=== PATIENT | female | born 2000 | race Caucasian/White ===

== ENCOUNTER 2018-01-10 22:42 | Observation (INO) | payer BC, OTHER ==
[2018-01-11 00:04] LABS: #Basophils 0.1 thou/uL (0.0-0.2); #Eosinphils 0.1 thou/uL (0.0-0.7); #Monocytes 0.6 thou/uL (0.11-0.59); #Neutrophils 5.8 thou/uL (1.40-6.50); %Lymphocytes 23.5 % (28.0-48.0); %Monocytes 7.3 % (0.0-4.0); %Neutrophils 67.3 % (31.0-61.0); Hemoglobin 10.1 g/dL (12.0-16.0); Mean Corpuscular HGB CONC 32.9 g/dL (32.0-36.0); Mean Corpuscular Hemoglobin 26.1 pg (25.0-35.0); Mean Corpuscular Volume 79.4 fL (78.0-98.0); Mean Platelet Volume 6.7 fL (7.4-10.4); Platelet Count 298 thou/uL (130-400); RBC Distribution Width 15.6 % (11.5-14.5); Red Blood Cell (RBC) Count 3.85 mill/uL (4.00-5.20); White Blood Cell (WBC) Count 8.6 thou/uL (4.8-10.8)
[2018-01-11 01:48] LABS: Bilirubin Negative (Negative); Blood, Urine Negative (Negative); Clarity CLEAR (Clear); Glucose, Urine (Dipstick) Negative (Negative); Leukocyte Negative (Negative); Nitrite Negative (Negative); Protein, Urine (Dipstick) Negative (Neg-Trace); Specific Gravity, Urine 1.018 (1.002-1.036); Urobilinogen 0.2 mg/dL (0.2-1.0)
[2018-01-11 04:24] LABS: Hemoglobin 9.7 g/dL (12.0-16.0)
[2018-01-11] MEDS ORDERED: Ondansetron HCl/PF 4 MG/2 ML Vial IVP PRN (04:39)
[2018-01-11] MEDS ORDERED: Acetaminophen 500 MG TAB PO PRN (04:39)
[2018-01-11 08:16] LABS: Hemoglobin 9.2 g/dL (12.0-16.0); Mean Corpuscular HGB CONC 33.1 g/dL (32.0-36.0); Mean Corpuscular Hemoglobin 25.8 pg (25.0-35.0); Mean Corpuscular Volume 77.8 fL (78.0-98.0); Mean Platelet Volume 6.1 fL (7.4-10.4); Platelet Count 234 thou/uL (130-400); RBC Distribution Width 15.5 % (11.5-14.5); Red Blood Cell (RBC) Count 3.57 mill/uL (4.00-5.20); White Blood Cell (WBC) Count 7.7 thou/uL (4.8-10.8)
--- NOTE | 2018-01-11 08:57 | ULT ---
PRELIMINARY REPORT/[facility]/EMERGENTY AFTER-HOURS PROCEDURE Addendum created by Delano Parra MD on 01/11/2018 5:51 AM Central Time ([place] & [place]) THIS REPORT CONTAINS FINDINGS THAT MAY BE CRITICAL TO PATIENT CARE. Dr Alexis confirmed receipt of the report/critical findings at 5:43 AM CDT on 01/11/2018. Initial Report created on 01/11/2018 5:42 AM Central Time ([place] & [place]) US First Trimester, Transabdominal US , Transvaginal US Duplex Arterial/Venous of the Pelvis, Limited CLINICAL HISTORY: 17 years old, female; Pain; complicated by abdominal or pelvic pain; Lower; First trimester ; Gestational age or lmp: 6w3d; ; Patient HX: Pelvic pressure/pain TECHNIQUE: Real-time transabdominal and transvaginal obstetrical ultrasound of the maternal pelvis and a first t rimester with image documentation. Transvaginal imaging was used for better evaluation of t he fetus and adnexa. Real-time duplex ultrasound scan of the pelvis integrating B-mode two-dimensional vascular structure, Doppler spectral analysis and color flow Doppler imaging. COMPARISON: No relevant prior studies available. FINDINGS: Transabdominal ultrasound showed an intrauterine gestational sac. Transvaginal ultrasound was perform ed for evaluation of yolk sac and pole. Duplex ultrasound scan with color Doppler flow and spec tral waveform analysis was also performed for evaluation of pelvic and ovarian blood flow and torsion. Gestation: Single, living intrauterine gestation. heart rate 124 beats per minute. CRL 0.52 cm, 6w2d. Yolk sac visualized. Subchorionic hemorrhage measuring up to 4.3 cm. Placenta/amniotic fluid: Cannot be adequately evaluated due to the early gestational age. Uterus/cervix: See above. Right ovary: Right ovary is not visualized. Left ovary: Left ovary is not well visualized. However no acute findings as visualized. Probable rachael us luteum. Normal ovarian blood flow. No evidence of torsion. Free fluid: Moderate adnexal and cul-de-sac free fluid. IMPRESSION: Single viable intrauterine . Large subchorionic hemorrhage. Moderate pelvic fluid. Findings described above. Thank you for allowing us to participate in the care of your patient. Dictated and Authenticated by: Delano Parra MD 01/11/2018 5:42 AM Central Time ([place] & [place]) FINAL REPORT OBSTETRIC SONOGRAM TRANSABDOMINAL AND TRANSVAGINAL IMAGING WITH DUPLEX EVALUATION PERFORMED ON AN EMERGENCY BASIS: Date: 01/11/18 Time: 0242 hours HISTORY: Early . Pelvic pain. FINDINGS: Findings agree with the preliminary report by Juanis. Early gestational sac within the endometrial cavi ty is confirmed. Large heterogeneous subchorionic fluid collection has the appearance of a subchorion ic hemorrhage. Measurements correlate with 6 weeks/2 days gestational size. Close continued clinical and sonographic follow-up is required. POS: ALESSIA
[2018-01-11 09:35] VITALS: BMI 29.4
[2018-01-11 10:20] VITALS: BP 104/54; TEMP 97.8
--- NOTE | 2018-01-11 10:36 | PDOC.EVN ---
Event Note - Event Note Event Note: Clinical scenario reviewed with Dr. Roberts this AM. Resting comfortably. VSS AF Abdomen is soft, NT. No guarding or rebound. Serial H/H's remain stable. Plan: DC home with precautions. Has appt. with primary care at [facility] in AM to obtain referral. Voices understanding.
--- NOTE | 2018-01-11 13:16 | HP ---
DATE OF SERVICE: 01/11/2018 ADMITTING DIAGNOSIS: Abdominal pain with an intrauterine at 6 weeks. CHIEF COMPLAINT: Abdominal pain PRIMARY OB: None. HISTORY OF PRESENT ILLNESS: The patient is a 17-year-old G1, now P0 female with an intrauterine at 6 weeks and 3 days by ultrasound done in the ER today, who presented with acute onset abdominal pain around 6:00 p.m. that did not show improvement so came for evaluation. In the emergency room evaluation demonstrated some free fluid in the abdomen with an intrauterine at 6 weeks and 3 days with seen pole and heartbeat. The patient reports that her pain is improved with sitting still and is a little bit improved since the onset, but is still pretty severe. Patient has not received any IV fluids at this time. The patient denies headache, chest pain, shortness of breath, nausea, vomiting, diarrhea, constipation, any new rashes. She denies hip problems, knee problems. She does report lower back pain that she attributes to the bed. She describes her pain is primarily on the right side, mid lower pelvis as well. Patient denies vaginal bleeding or leakage of fluid, urinary urgency or frequency. PAST MEDICAL HISTORY: Negative. PAST SURGICAL HISTORY: Negative. ALLERGIES: Negative. SOCIAL HISTORY: Denies drug, alcohol, or tobacco use. CURRENT MEDICATIONS: vitamins. PHYSICAL EXAMINATION: VITAL SIGNS: Blood pressure 145/63, pulse of 83, respiratory rate of 20, satting 100% on room air at the time of my evaluation. GENERAL: She appears to be in no acute distress. She is alert and oriented, cooperative and pleasant to interact with it. She appears to have good color. HEAD: Normocephalic, atraumatic. LUNGS: Clear to auscultation bilaterally. HEART: Regular rate and rhythm. ABDOMEN: Soft. She does have some tenderness to palpation on the right side, but no guarding. She has some suprapubic tenderness very little tenderness on the left side and no mid abdomen or epigastric tenderness to palpation. GENITOURINARY: Has been deferred. Ultrasound report is pending. Visibly there does appear to be a intrauterine with a pole and there is fluid present in the right adnexa and fundal region. LABORATORY DATA: Hemoglobin at 2351 hours was 10.1, hematocrit 30.6, platelets 298,000. A repeat H&H at 04:13 a.m. is 9.7 and 29.6. ASSESSMENT AND PLAN: The patient is a 17-year-old female with acute onset abdominal pain and fluid in the pelvis with an intrauterine , visible, presenting with acute onset abdominal pain. Hemoglobin is stable at this time and is not appear to be actively bleeding. We will admit the patient to observation for serial CBC and serial abdominal exam. Should her next hemoglobin continued to remain stable, we will consider discharge to home. If it continues to fall significantly, we will consider laparoscopic evaluation. SUNDAY
--- NOTE | 2018-01-12 00:01 | DIS ---
DATE OF ADMISSION: 01/11/2018 DATE OF DISCHARGE: 01/11/2018 ADMITTING PHYSICIAN: Supa Roberts M.D. HISTORY OF PRESENT ILLNESS AND HOSPITAL COURSE: Ms. Teixeira is a 17-year-old white with posi tive test approximately a week and a half ago who presented to the ER early this morning co mplaining of diffuse abdominal pain. Evaluation in the ER showed a CBC with a normal white count and a hemoglobin of 10.1 and 30.6 respectively. On ultrasound, she was found to have a 6-1/2 week intrau terine with normal heart tones. She did have what appeared to be a subchorionic hemorrhage , but complained of no vaginal bleeding. Due to the moderate amount of intraperitoneal fluid, she was observed. She was placed in observation on the [facility] floor and serial hematocrits were obtained. Her hematocrit went from 10.1 to 9.7 and 9.2. I examined her, her abdomen was soft and nontender. There was no guarding or rebound. The patient s tates that her pain is improved. Decision was made to discharge home. I did speak with her mother who was present in the room and the y have an appointment for her at [facility] to begin care there. She was given complete pr ecautions and told to return should she experience pain or bleeding. She voiced understanding of her discharge instructions and was sent home in good condition.
== END 2018-01-11 11:30 | disposition home or self-care (01) ==
LOC: ERS 22:42 → 3SW 01-11 04:39 → INTOOBSV 01-11 04:39
PROVIDERS: ADMIT Obstetrics & Gynecology; ATTEND Obstetrics & Gynecology
DX: O99.89 Other specified diseases and conditions complicating pregnancy, childbirth and the puerperium (principal); R10.9 Unspecified abdominal pain; Z3A.01 Less than 8 weeks gestation of pregnancy
CPT/HCPCS: 36415; 76856; 81003; 84702; 85014; 85018; 85025; 86850; 86900; 86901; G0378